=== PATIENT | female | born 1985 | race Caucasian/White ===

== ENCOUNTER → 2022-08-21 15:10 | Outpatient (CLI) | payer MEDICAID, SELFPAY ==
[2022-08-23 11:58] LABS: HIV Screen 4th Generation wRfx Non Reactive (Non Reactive)
[2022-08-23 12:39] LABS: Rapid Plasma Reagin Ab Titer Non Reactive (NonRea<1:1)
[2022-08-23 22:07] LABS: Neisseria gonorrhoeae, NAA Negative (Negative)
[2022-08-26 05:25] LABS: Hep A Ab, IgM Negative; Hepatitis B Core Antibody IgM Negative; Hepatitis B Surface Antigen Negative; Hepatitis C Antibody >11.0
[2022-08-26 05:26] LABS: Trichomonas Vaginalis, NAA Positive
== END ==
PROVIDERS: PCP Nurse Practitioner; Visit Provider Nurse Practitioner
DX: Z11.3 Encounter for screening for infections with a predominantly sexual mode of transmission (principal); Z11.4 Encounter for screening for human immunodeficiency virus [HIV]
CPT/HCPCS: 80074; 86593; 86703; 87491; 87591; 87661; G0432